=== PATIENT | female | born 1955 | race Caucasian/White ===

== ENCOUNTER 2023-01-04 11:15 | Emergency (ER) | payer OTHER ==
[2023-01-04] MEDS ORDERED: KETOROLAC TROMETHAMINE 30 MG/1 ML VIAL IM ONE (11:43)
[2023-01-04 11:46] VITALS: BP 166/79; PULSE 76; RESP 17; TEMP 98; BMI 30.9
[2023-01-04] MEDS ORDERED: KETOROLAC TROMETHAMINE 30 MG/1 ML VIAL ONE (11:52)
== END 2023-01-04 13:05 | disposition home or self-care (01) ==
LOC: JERFT 11:15 → JER 11:15 → JERFT 13:05
PROC: 3E0233Z Introduction of Anti-inflammatory into Muscle, Percutaneous Approach (ICD-10-PCS; principal; 2023-01-04)
DX: M25.561 Pain in right knee (principal); X50.1XXA Overexertion from prolonged static or awkward postures, initial encounter; Y93.01 Activity, walking, marching and hiking
CPT/HCPCS: 93971-TC; 96372; 99284-25